=== PATIENT | male | born 1975 | race Caucasian/White ===

== ENCOUNTER 2025-04-01 12:36 | Day surgery (SDC) | payer BC ==
[2025-03-30 10:34] LABS: MEAN PLATELET VOLUME 7.4 FL (7.4-10.4); PRE OP HEMATOCRIT 42.5 % (42.0-52.0); PRE OP HEMOGLOBIN 14.4 g/dL (14.0-17.9); PRE OP PLATELET COUNT 175 X10'3 (140-440); PRE OP WHITE BLOOD COUNT 4.5 10'3 (4.8-10.8); RED CELL DISTRIBUTION WIDTH 13.2 % (11.5-14.5)
--- NOTE | 2025-03-30 10:36 | ELECTROCARDIOGRAPH REPORT ---
[facility] Test Date: 2025-03-30 Test Time: 10:34:04 Pat Name: HERNANDEZ MCNAMARA Department: [facility]-PRE-OP Patient ID: [facility]-[id number] Room: Gender: M Business Representative: KATERIN : 1975 Requested By: ALEXANDRA AVALOS Order Number: [id number] Reading MD: Dr. JIN Hunt Measurements Intervals [place] Rate: 62 P: 72 [place]: 161 QRS: 74 QRSD: 109 T: 49 QT: 412 QTc: 419 Interpretive Statements Sinus rhythm Electronically Signed On 03-30-2025 18:49:[address] JIN Hunt Please click the below link to view image of tracing.
[2025-03-30 10:58] LABS: CREATININE 1.14 MG/DL (0.60-1.10); PRE OP ALT 20 U/L (30-65); PRE OP ANION GAP 8 (8-16); PRE OP AST 19 U/L (10-37); PRE OP BILIRUB, TOTAL 0.6 MG/DL (0.0-1.0); PRE OP GLUCOSE 91 MG/DL (70-104); PRE OP POTASSIUM 4.2 MMOL/L (3.4-5.1); PRE OP SODIUM 143 MMOL/L (135-145); TOTAL CARBON DIOXIDE 28.1 MMOL/L (24-32); eGFR 68 ML/MIN
[~2025-04-01] VITALS: Ht 185.4 cm; Wt 100.2 kg
[2025-04-01] VITALS (12 sets, daily range): BP systolic 110–141; BP diastolic 74–93; PULSE 62–88; RESP 12–20; TEMP 99.2; O2SAT 98–100
[~2025-04-01 12:36] MED LIST: BUPIVAcaine/PF 2.5mg/ml (0.25%) 10ml vial ONE; LIDOcaine 1% 30ml preserv. free vial ONE; NO HOME MEDS
[2025-04-01] MEDS: ringers solution, lacted 1,000 ML IV SCH (13:11)
[2025-04-01] MEDS: ceFAZolin 2gm/dext,iso 50mL 50 ML IV ONE (13:13)
[2025-04-01] MEDS ORDERED: ondansetron/PF 4mg/2ml inj IV PRN (13:40)
[2025-04-01] MEDS ORDERED: fentaNYL/PF 50MCG/1 ML 2ML syringe IV PRN ×2 (13:40)
[2025-04-01] MEDS ORDERED: ringers solution, lacted 1,000 ML IV SCH (13:40)
[2025-04-01] MEDS ORDERED: hydrALAZINE 20mg/ml inj. IV PRN (13:40)
[2025-04-01] MEDS ORDERED: morphine 4 MG/ML inj SYRINge IV PRN (13:40)
[2025-04-01] MEDS ORDERED: labetalol 20mg/4ml (5mg/ml) syringe IV PRN (13:40)
[2025-04-01] MEDS: INDOCYANINE GREEN 25 MG/10 ML VIAL IV ONE (13:49)
[2025-04-01] MEDS ORDERED: dexamethasone sod phosphate 4mg/ml inj. ONE (15:00)
[2025-04-01] MEDS ORDERED: midazolam 1 mg/ML 2ml injection ONE (15:13)
[2025-04-01] MEDS ORDERED: fentaNYL/PF 50MCG/1 ML 2ML syringe ONE (15:13)
[2025-04-01] MEDS ORDERED: LIDOcaine 2% (20mg/ml) 5ml vial ONE (15:22)
[2025-04-01] MEDS ORDERED: propofol inj 20 ML IV ONE (15:22)
[2025-04-01] MEDS ORDERED: acetaminophen 1,000mg/100ml IV 100 ML IV ONE (15:23)
[2025-04-01] MEDS ORDERED: rocuronium 10mg/ml inj IV ONE (15:23)
[2025-04-01] MEDS ORDERED: ondansetron/PF 4mg/2ml inj ONE (15:23)
[2025-04-01] MEDS ORDERED: oxyCODONE/APAP 5-325mg tablet PO PRN (16:45)
--- NOTE | 2025-04-01 16:50 | OPERATIVE REPORT ---
Operative Report Providers to CC CC: VAMSHI AAVLOS MD ~ Date of Procedure: Apr 01, 2025 Pre-Operative Diagnosis: Symptomatic cholelithiasis Post-Operative Diagnosis SAME as PRE-Op Procedure Performed Robotic assisted, laparoscopic cholecystectomy Surgeon: Vamshi Avalos MD FACS Director Of Testing None Anesthesiologist: Alvarez Jane Type of Anesthesia: General Findings: Clearly visualized cystic duct and common bile duct as well as critical view of safety confirmed using fluorescent cholangiography/firefly Wound class II Complications None Prosthetics\Implants used: None Estimated Blood Loss: Minimal Specimen Removed: Gallbladder Description of Procedure: Patient was brought to the operating room and identified by the nursing staff and the attending physician. Patient was placed supine and general anesthesia was induced. A supraumbilical, midline incision was made, long enough to accommodate a 12 mm Muñiz port. Muñiz technique was used to gain entry into the abdomen. Stay sutures were placed in the Muñiz port anchored to the fascia . Abdomen was insufflated without incident. Laparoscope was inserted and the abdomen surveyed. Secondary, 8.5 mm robotic trochars were placed in the left upper quadrant and right lateral abdomen. Robotic arm was docked to the patient. Robotic instruments were guided intra- abdominally under laparoscopic visualization. Gallbladder was readily identified. There was a Phrygian cap in the gallbladder was somewhat distended. It filled with contrast using firefly to visualize. Fundus of the gallbladder was grasped and retracted over the dome of the liver. Infundibulum was retracted towards the right lower quadrant. Firefly technology was used to obtain a fluorescent cholangiogram and visualize the pertinent anatomy. Cystic duct was clearly visualized. Peritoneum overlying the triangle was incised with hook electrocautery. This allowed for circumferential dissection of the cystic duct and artery. Critical view of safety was obtained. Duct and artery were then clipped with hemo-lock clips and both structures divided. Gallbladder was retracted laterally and dissected out of the gallbladder fossa. Gallbladder was set aside and fluorescent cholangiogram of the gallbladder fossa was used to confirm no evidence of bile leak. Gallbladder was placed in a laparoscopic retrieval bag. Secondary trochars were removed and the abdomen allowed to deflate. Muñiz port was removed with t he specimen in its retrieval bag. Fascia at the umbilical port site was closed with 0 Vicryl sutures. Skin was closed with 4-0 Monocryl sutures in a subcuticular fashion About 50 cc of local anesthetic was used during the case. Sterile dressings were applied. Patient was awakened and taken to the postanesthesia care unit in stable condition. Counts repoted as correct: Yes VAMSHI AVALOS MD Apr 01, 2025 16:50
== END 2025-04-01 17:42 | disposition home or self-care (01) ==
LOC: PAS 12:36
PROVIDERS: ATTEND Surgery
DX: K80.10 Calculus of gallbladder with chronic cholecystitis without obstruction (principal); R73.09 Other abnormal glucose; R94.31 Abnormal electrocardiogram [ECG] [EKG]
CPT/HCPCS: 36415; 47563; 80053; 82948; 85025; 93005; J0131; J0690; J1100; J2003; J2250; J2405; J2704; J3010; J3490; J7030; J7120; S2900; Z7506; Z7508; Z7512; A4215; A4618